=== PATIENT | female | born 1985 | race Caucasian/White ===

== ENCOUNTER 2017-06-25 06:39 | Day surgery (SDC) | payer MEDICAID, BC ==
[2017-06-25] MEDS ORDERED: LIDOCAINE 100 MG SYRINGE (07:00)
[2017-06-25] MEDS ORDERED: CEFAZOLIN 1 GM INJ (07:00)
[2017-06-25] MEDS ORDERED: MIDAZOLAM 1 MG/ML 2 ML INJ (07:11)
[2017-06-25] MEDS ORDERED: PROPOFOL 20 ML (07:11)
[2017-06-25] MEDS ORDERED: FENTAnyl 50 MCG/ML VIAL (07:11)
[2017-06-25 07:30] LABS: ADD MAN DIFF? NO
[2017-06-25 07:38] LABS: WHITE BLOOD COUNT 7.4 10^3/ul (4.8-10.8)
[2017-06-25 07:38] LABS: BASOPHILS % 0.5 % (0.0-2.0); EOSINOPHILS # 0.3 10^3/ul (0.0-0.5); EOSINOPHILS % 3.8 % (0.0-7.0); HEMOGLOBIN 13.6 g/dl (12.0-16.0); LYMPHOCYTES # 2.8 10^3/ul (0.8-2.9); LYMPHOCYTES % 37.3 % (15.0-51.0); MEAN CORPUSCULAR VOLUME 94.1 fl (82.0-101.0); MONOCYTE # 0.6 10^3/ul (0.3-0.9); NEUTROPHIL # 3.7 10^3/ul (1.6-7.5); NEUTROPHILS % 50.3 % (39.0-77.0); PLATELET COUNT 398 10^3/UL (140-415); RED BLOOD COUNT 4.25 10^6/ul (4.20-5.40); RED CELL DISTRIBUTION WIDTH 12.1 % (11.5-14.5)
[2017-06-25] MEDS ORDERED: METOCLOPRAMIDE 10 MG INJ (07:40)
[2017-06-25] MEDS ORDERED: ONDANSETRON 4 MG INJ (07:40)
[2017-06-25] MEDS ORDERED: DEXAMETHASONE 4 MG/ML 1 ML INJ (07:40)
[2017-06-25] MEDS ORDERED: FAMOTIDINE 20 MG INJ (07:41)
[2017-06-25] MEDS ORDERED: KETOROLAC 30 MG INJ (07:54)
[2017-06-25] MEDS ORDERED: MEPERIDINE 25 MG INJ IV (08:30)
[2017-06-25] MEDS ORDERED: FENTAnyl 50 MCG/ML VIAL IV ×3 (08:30)
[2017-06-25] MEDS ORDERED: ALBUTEROL 0.083% (NEB) 2.5 MG/3 ML AMP HHN (08:30)
[2017-06-25] MEDS ORDERED: ONDANSETRON 4 MG INJ IV (08:30)
[2017-06-25] MEDS ORDERED: OXYCODONE/ACETAMINOPHEN (5/325) TAB PO ×2 (08:30)
[2017-06-25] MEDS ORDERED: METOCLOPRAMIDE 10 MG INJ IV (08:30)
== END 2017-06-25 10:06 | disposition home or self-care (01) ==
LOC: SDS 06:39
DX: Z30.2 Encounter for sterilization (principal)
CPT/HCPCS: 58565; 85025; 86900; 86901; 88300